=== PATIENT | female | born 1960 | race Caucasian/White ===

== ENCOUNTER 2018-02-27 18:18 | Observation (INO) | payer BC ==
[2018-02-27 19:07] LABS: #Basophils 0.1 thou/uL (0.0-0.2); #Eosinphils 0.3 thou/uL (0.0-0.7); #Lymphocytes 2.8 thou/uL (1.20-3.40); #Monocytes 0.5 thou/uL (0.11-0.59); #Neutrophils 4.7 thou/uL (1.40-6.50); %Basophils 1.1 % (0.0-1.0); %Eosinophils 3.2 % (0.0-10.0); %Lymphocytes 33.2 % (21.0-51.0); %Monocytes 5.9 % (0.0-10.0); %Neutrophils 56.6 % (42.0-75.0); Hemoglobin 13.5 g/dL (12.0-16.0); Mean Corpuscular HGB CONC 35.5 g/dL (32.0-36.0); Mean Corpuscular Volume 87.4 fL (78.0-98.0); Mean Platelet Volume 6.4 fL (7.4-10.4); Platelet Count 310 thou/uL (130-400); RBC Distribution Width 12.3 % (11.5-14.5); Red Blood Cell (RBC) Count 4.36 mill/uL (4.20-5.40); White Blood Cell (WBC) Count 8.4 thou/uL (4.8-10.8)
--- NOTE | 2018-02-27 19:17 | CT ---
CT BRAIN NONCONTRAST: 02/27/18 HISTORY: 58-year-old female with dysarthria. FINDINGS: There is no midline shift or any other mass effect. There is no evidence of acute intracranial hemor rhage, large cortical infarct, obstructive hydrocephalus, or extraaxial fluid collection. The calvar ium is intact. IMPRESSION: No acute intracranial findings. jn [] POS: [facility]
[2018-02-27 19:27] LABS: ALT (SGPT) 10 U/L (8-55); AST (SGOT) 11 U/L (5-34); Albumin 4.2 g/dL (3.5-5.0); Alkaline Phosphatase 76 U/L (40-150); Anion Gap 15 mmol/L (10-20); BUN (Urea Nitrogen) 14 mg/dL (9.8-20.1); Bilirubin, Total 0.4 mg/dL (0.2-1.2); CK (CPK) 28 U/L (29-168); Calc. Creatinine Clearance 0 mL/min (70-130); Calcium 9.6 mg/dL (7.8-10.44); Carbon Dioxide 22 mmol/L (22-29); Chloride 105 mmol/L (98-107); Estimated GFR-MDRD 71; Globulin 2.8 g/dL (2.4-3.5); Glucose 86 mg/dL (70-105); Potassium 3.8 mmol/L (3.5-5.1); Sodium 138 mmol/L (136-145)
[2018-02-27 19:31] LABS: CKMB 0.5 ng/mL (0-6.6); Troponin I Less than 0.010 ng/mL (< 0.028)
[2018-02-27 23:00] LABS: Troponin I Less than 0.010 ng/mL (< 0.028)
[2018-02-28 02:50] LABS: Troponin I Less than 0.010 ng/mL (< 0.028)
[2018-02-28] MEDS ORDERED: Ondansetron ODT 4 MG TAB SL PRN (03:02)
[2018-02-28] MEDS ORDERED: Acetaminophen 325 MG TAB PO PRN ×2 (03:02→07:30)
[2018-02-28] MEDS ORDERED: Ondansetron HCl/PF 4 MG/2 ML Vial IVP PRN (03:02)
[2018-02-28 03:32] VITALS: BMI 33.5
[2018-02-28] MEDS ORDERED: hydrALAZINE 20 MG/ML VIAL SLOW IVP PRN (07:30)
[2018-02-28] MEDS ORDERED: Bisacodyl 5 MG TAB PO PRN (07:30)
[2018-02-28] MEDS ORDERED: HYDROcodone/Acetaminophen 5/325 mg Tablet PO PRN (07:34)
[2018-02-28] MEDS ORDERED: clonazePAM 1 MG TAB PO PRN (07:34)
[2018-02-28] MEDS ORDERED: traZODone HCl 50 MG TAB PO PRN (07:34)
[2018-02-28] MEDS: Aspirin 325 mg Enteric Coated Tablet PO SCH (08:38)
[2018-02-28] MEDS: Lidocaine 5% Patch TD SCH (09:36)
[2018-02-28] MEDS: DULoxetine 60 MG CAP PO SCH (09:36)
[2018-02-28] MEDS: Bupropion 150 MG XL TAB PO SCH (09:36)
[2018-02-28] MEDS: Gabapentin 300 MG CAP PO SCH ×4 (09:36→20:25)
[2018-02-28] MEDS: Enoxaparin Sodium 40 MG/0.4 ML SYRINGE SC SCH (09:36)
--- NOTE | 2018-02-28 10:31 | ULT ---
CAROTID DUPLEX ULTRASOUND: DATE: 02/28/18 INDICATION: History of TIA. FINDINGS: No visible stenosis is evident on the Vizcaino scale or color Doppler images. Velocity measurements are w ithin normal limits. There is antegrade flow within the vertebral arteries. Peak systolic velocity in the right CCA was 94 cm/second and in the left CCA was 119 cm/second. Peak systolic velocity within the right ICA was 95 cm/second and within the left ICA was 98 cm/second . The right ICA/CCA ratio was 1.0 and the left was 0.8. IMPRESSION: No hemodynamically significant stenosis seen. POS: [facility]
--- NOTE | 2018-02-28 10:51 | MRI ---
MRI BRAIN WITHOUT CONTRAST: Date: 02/28/18 INDICATION: Concern for stroke. The patient has hesitancy of speech and difficulty swallowing with dry mouth and chest pain. COMPARISON: Noncontrast CT of the brain dated 02/27/18. FINDINGS: There is no evidence of any restricted diffusion to suggest acute ischemia. No signal abnormality is evident on the FLAIR and T2-weighted images to suggest acute abnormality. There is some mild chronic small vessel white matter ischemic change involving both cerebral hemispheres. There are appropriate flow-voids extending within the major intracranial arteries. Septum pellucidum and third ventricle ar e midline. Skull and extracranial soft tissues appear within normal limits. IMPRESSION: No acute intracranial abnormality. POS: [facility]
--- NOTE | 2018-02-28 11:25 | HP ---
DATE OF ADMISSION: 02/28/2018 PRIMARY CARE PROVIDER: Darian Huerta M.D. CHIEF COMPLAINT: Slurred speech. HISTORY OF PRESENT ILLNESS: Ms. Bartlett is a pleasant 58-year-old lady who was seen at [facility] on 02/28/2018. She reports that she has been having bilateral ankle swelling. She reports that this is a chronic is carlee, but her ankle swelling usually improves by the morning, whereas it has not been doing so over th e last week. She also reports feeling "little weird" over the last week. Yesterday, she was at work. She felt that she had a dry mouth and started licking her lips. She als o reports that as the day progressed, she started having slurred speech. Every task that she was doi ng was getting more difficult. She was also having difficulty concentrating. She reports having similar episodes in the past. She presented to the emergency room yesterday becau se she was worried about stroke. REVIEW OF SYSTEMS: All other systems reviewed and found to be negative. PAST MEDICAL HISTORY: Congestive heart failure, mitral valve regurgitation, osteoarthritis, fibromya lgia, viral pneumonia. PAST SURGICAL HISTORY: Left knee replacement, cholecystectomy, tonsillectomy. PSYCHIATRIC HISTORY: Anxiety and depression. SOCIAL HISTORY: The patient denies tobacco use, alcohol use or recreational drug use. FAMILY HISTORY: TIA in her mother, CVA in sister at age 57 and LA in brother at age 35. ALLERGIES: No known drug allergies. CURRENT MEDICATIONS: Wellbutrin XL 150 mg daily, clonazepam 1 mg 3 times a day as needed, Cymbalta 6 0 mg daily, gabapentin 300 mg 4 times a day, Langford 5/325 mg p.r.n., Lidoderm 5% patch 3 patches daily , trazodone 100 mg at bedtime as needed. PHYSICAL EXAMINATION: GENERAL: Ms. Bartlett is awake and alert, not in acute distress. VITAL SIGNS: She is afebrile. Blood pressure is 126/83, pulse 74, respiratory rate 16 and oxygen sa turation 96% on room air. She is obese, with a BMI 33.5. EYES: No scleral icterus. No conjunctival pallor. ENT: Moist mucosal membranes. No oropharyngeal erythema or exudates. NECK: Supple, nontender, trachea is midline. RESPIRATORY: Accessory muscles of breathing are not active. Chest wall movements are symmetric bila terally. LUNGS: Clear to auscultation without wheeze, rhonchi or crepitations. CARDIOVASCULAR: S1 and S2 are heard, regular. Peripheral pulses palpable. No carotid bruit, no per icardial rub. ABDOMEN: Soft, nontender, bowel sounds are heard, no hepatomegaly, no splenomegaly. NEUROLOGIC: Cranial nerves II-XII intact. No focal motor or sensory deficits. Deep tendon reflexes 2+, plantar reflexes downgoing bilaterally. MUSCULOSKELETAL: Power is 5/5 in all 4 extremities. SKIN: No rashes or subcutaneous nodules. LYMPHATIC: No cervical lymphadenopathy. PSYCHIATRIC: Normal mood, normal affect. The patient is oriented to person, place and time. LABORATORY DATA: Ms. Bartlett's labs and investigations were reviewed. I reviewed her electrocardiogra m, which shows normal sinus rhythm, no ST changes to suggest an acute coronary syndrome. I also revi ewed her noncontrast CT scan of brain, which does not show any acute intracranial abnormality. She h as an unremarkable CBC, unremarkable comprehensive metabolic profile, normal TSH, normal BNP and norm al troponin I x3. ASSESSMENT AND PLAN: Ms. Bartlett is a pleasant 58-year-old lady who was seen at [facility] on 02/28/2018. Her problem list includes: 1. Slurred speech: Ms. Bartlett is presenting with slurred speech, etiology is unclear at this time. There are no focal neurologic findings. We will admit the patient to the hospital on observation sta tus for further workup and management. We will check MRI of brain as well as 2D echocardiogram and c arotid Doppler. We will start her on aspirin and statin for possible transient ischemic attack. 2. Bilateral ankle swelling: At this time, she does not have any ankle swelling, she reports that i t has improved since yesterday. She has a normal BNP. We will await 2D echo report. Her albumin is normal as well. We will trial her on low dose furosemide for the next few days when she can be reas sessed by her primary care provider. 3. Fibromyalgia: Continue home medications, fibromyalgia appears to be stable. 4. Osteoarthritis: Appears to be stable. Many thanks for allowing me to participate in your patient's care. Please feel free to contact me wi th any questions or concerns. LEVEL OF RISK: High. LEVEL OF COMPLEXITY: High.
--- NOTE | 2018-02-28 15:35 | CON ---
CHIEF COMPLAINT: Transient ischemic attack. HISTORY OF PRESENT ILLNESS: The patient is a 58-year-old lady who reports her sister has had a stroke on the left side at age 57 and is bedridden. She reports she has been having swelling of her feet. She noted she was having some slurred speech and also delayed reaction while she was working. It took her a long time to even do a task such as taking a simple payment from someone yesterday when at work and she started to feel like there was some difficulty with her processing ability, which she normally has slightly slow processing mentally due to her fibromyalgia. She usually has some numbness and tingling in the left arm, but she did not have that yesterday. Her primary symptom yesterday was slurred speech and mental delay. PAST MEDICAL HISTORY: Congestive heart failure, mitral valve regurgitation, osteoarthritis, fibromyalgia and prior pneumonia. PAST SURGICAL HISTORY: She had multiple surgeries for her left knee and then had to have left knee replacement from a surgeon in [place] and this is called a customized left knee replacement, which is a more difficult process, but she is quite happy with the result. She had a cholecystectomy, tonsillectomy as a child. SOCIAL HISTORY: She lives with her , works oil and gas superintendent, does not smoke or drink alcohol. FAMILY HISTORY: She stated her sister had a severe CVA at age 57 and has become bedridden. Brother has had an ME. Mother used to have multiple ischemic events and the patient states mother used to sit and sometimes lick her lips and make pattern movements with the right upper extremity and says that her stomach felt better if she did that and she would have intermittent episodes like that and they finally learned it was due to multiple ischemic events. ALLERGIES: No known drug allergies. MEDICATIONS: She takes Wellbutrin, clonazepam, Cymbalta, gabapentin, [place], and Lidoderm patches and trazodone at home. She is not on aspirin on a daily basis. PHYSICAL EXAMINATION: VITAL SIGNS: Blood pressure 151/87, temperature 97.8, pulse is 77, respiratory rate 16, O2 sats 98. GENERAL APPEARANCE: Well-built, well-nourished lady. CHEST: Clear vesicular breathing. CARDIOVASCULAR: S1, S2 heard, no murmurs. ABDOMEN: Soft, nontender, no organomegaly noted. NEUROLOGIC: Higher intellectual functions: Normal orientation to time place and person, appropriate conversation. Cranial nerves II through XII normal with normal fundus examination. Normal visual arndt by confrontation method. Normal pupillary reaction bilaterally. Normal sensation of face bilaterally. Tongue midline, no atrophy noted. No facial asymmetry noted. Normal hearing to finger rub bilaterally. Normal elevation of palate. Motor examination: Bulk normal, tone normal, strength 5/5 throughout in iliopsoas, hamstrings, quadriceps, ankle dorsiflexion, plantar flexion, deltoid , biceps, triceps, wrist extension and flexion bilaterally. Deep tendon reflexes are 1+ throughout in upper and lower extremities. Sensory: Normal touch, pinprick, proprioception and vibration bilaterally in upper and lower extremities. Cerebellar: Normal [id number] and [id number]. Gait is not tested. LABORATORY DATA AND IMAGING: Her workup includes white count 8.4, hemoglobin 13.5, hematocrit 38.1, platelets 310. Sodium 138, potassium 3.8, bicarbonate 22 , chloride 105, BUN 14, creatinine 0.83. CPK 28, alkaline phosphatase 76, ALT 10, AST 11 and TSH 1.18. Her CT scan of the brain was negative for any acute intracranial findings. Her MRI of the brain was also normal with no acute intracranial abnormality and carotid Doppler study was also normal. ASSESSMENT AND PLAN: The patient is a 58-year-old lady with fibromyalgia and nonspecific symptom of delayed mental processing and slurred speech and came in for evaluation of stroke due to her family history. She has also been having some palpitations on and off. At this time, her neurological examination is normal. MRI does not show any lesions suggestive of vascular events. Transient ischemic attack cannot be completely ruled out due to her cardiac issues and also her family history. RECOMMENDATIONS: 1. Aspirin 81 mg per day for stroke prophylaxis. 2. From a neuro standpoint, she can be discharged home since her MRI is negative and she can follow up with her primary care doctor. 3. Please complete cardiac workup on her as planned. Please call me if you need any further assistance on her case. LENA
[2018-02-28] MEDS ORDERED: Lidocaine Patch Removal 1 EACH TOP SCH (21:00)
[2018-02-28] MEDS ORDERED: Atorvastatin Calcium 20 MG TAB PO SCH (21:00)
[2018-03-01 04:30] LABS: #Eosinphils 0.2 thou/uL (0.0-0.7); #Lymphocytes 2.9 thou/uL (1.20-3.40); #Monocytes 0.7 thou/uL (0.11-0.59); #Neutrophils 3.4 thou/uL (1.40-6.50); %Basophils 0.7 % (0.0-1.0); %Eosinophils 3.3 % (0.0-10.0); %Lymphocytes 39.6 % (21.0-51.0); %Monocytes 9.4 % (0.0-10.0); Hemoglobin 12.7 g/dL (12.0-16.0); Mean Corpuscular HGB CONC 34.6 g/dL (32.0-36.0); Mean Corpuscular Hemoglobin 30.9 pg (27.0-31.0); Mean Corpuscular Volume 89.5 fL (78.0-98.0); Mean Platelet Volume 6.9 fL (7.4-10.4); Platelet Count 254 thou/uL (130-400); RBC Distribution Width 12.4 % (11.5-14.5); Red Blood Cell (RBC) Count 4.09 mill/uL (4.20-5.40); White Blood Cell (WBC) Count 7.2 thou/uL (4.8-10.8)
[2018-03-01 04:42] LABS: Anion Gap 15 mmol/L (10-20); BUN (Urea Nitrogen) 16 mg/dL (9.8-20.1); Calc. Creatinine Clearance 118 mL/min (70-130); Calcium 9.2 mg/dL (7.8-10.44); Carbon Dioxide 24 mmol/L (22-29); Chloride 107 mmol/L (98-107); Cholesterol 169 mg/dl (< 200 Desired); Estimated GFR-MDRD 73; Glucose 96 mg/dL (70-105); HDL Cholesterol 56 mg/dL (>60 Neg Risk); LDL Cholesterol, Calculated 90 mg/dL; Potassium 4.5 mmol/L (3.5-5.1); Sodium 141 mmol/L (136-145); Triglycerides 117 mg/dL (Less than 150)
[2018-03-01 07:18] VITALS: BP 148/88; TEMP 97.5
[2018-03-01] MEDS: Aspirin 325 mg Enteric Coated Tablet PO SCH (08:36)
[2018-03-01] MEDS: Gabapentin 300 MG CAP PO SCH (08:36)
[2018-03-01] MEDS: Bupropion 150 MG XL TAB PO SCH (08:36)
[2018-03-01] MEDS: DULoxetine 60 MG CAP PO SCH (08:36)
[2018-03-01] MEDS: Enoxaparin Sodium 40 MG/0.4 ML SYRINGE SC SCH (08:36)
[2018-03-01] MEDS: Lidocaine 5% Patch TD SCH (08:37)
--- NOTE | 2018-03-01 09:34 | DIS ---
DATE OF ADMISSION: 02/28/2018 DATE OF DISCHARGE: 03/01/2018 PRIMARY CARE PHYSICIAN: Darian Huerta M.D. DISCHARGE DIAGNOSIS: Slurred speech. CONDITION OF PATIENT ON THE DAY OF DISCHARGE: Stable. I assessed Ms. Bartlett on the day of discharge. She denies any chest pain or shortness of breath. She denies any neurologic symptoms. Vital signs are stable. S1 and S2 are heard, regular. Lungs are clear to auscultation bilaterally. CONSULTATIONS DURING THIS HOSPITALIZATION: Neurology, Dr. Lees. DISCHARGE MEDICATIONS: She is being started on aspirin 81 mg daily for stroke prophylaxis. Otherwis e, no changes were made to her preadmission home medications as dictated on my history and physical n ote dated 02/28/2018. HOSPITAL COURSE: Ms. Bartlett is a pleasant 58-year-old lady who was admitted to [facility] on 02/28/2018 for slurred speech and delayed mental processing. Please refer to my histo ry and physical note dated 02/28/2018 for further details. MRI of the brain did not show any acute i ntracranial abnormality. Carotid Dopplers did not show any hemodynamically significant stenosis. [place] also had a 2D echocardiogram, which showed left ventricular ejection fraction of 55%-60%, grade I/I II diastolic dysfunction, mild mitral regurgitation, mildly dilated left atrium, mild tricuspid regur gitation and small pericardial effusion without tamponade. She had triglycerides 117, cholesterol 169, LDL cholesterol 90, and HDL cholesterol 56. TSH was norm al. Her neurologic symptoms resolved. She was seen by Neurology Service. Given her family history, she has been advised aspirin 81 mg daily for stroke prophylaxis. Many thanks for allowing me to participate in your patient's care. Please feel free to contact me wi th any questions or concerns. DISCHARGE DESTINATION: Home.
[2018-03-02] MEDS ORDERED: Aspirin 81 mg Enteric Coated Tablet PO SCH (09:00)
--- NOTE | 2018-03-07 21:20 | EKG ---
Test Reason : Blood Pressure : / mmHG Vent. Rate : 088 BPM Atrial Rate : 088 BPM P-R Int : 140 ms QRS Dur : 090 ms QT Int : 372 ms P-R-T Axes : 034 -11 030 degrees QTc Int : 450 ms Normal sinus rhythm Moderate voltage criteria for LVH, may be normal variant Borderline ECG Confirmed by COLLEEN BENZ DO ([id number]), city editor JESSE LOPSE ([id number] on 03/07/2018 9:19:54 PM Referred By: Confirmed By:COLLENE BENZ DO
== END 2018-03-01 10:42 | disposition home or self-care (01) ==
LOC: ERS 18:18 → 2SE 02-28 01:17
PROVIDERS: ADMIT Hospitalist; ATTEND Hospitalist
DX: R47.81 Slurred speech (principal); I50.9 Heart failure, unspecified; I34.0 Nonrheumatic mitral (valve) insufficiency; Z79.899 Other long term (current) drug therapy
CPT/HCPCS: 36415; 36416; 70450; 70551; 80048; 80053; 80061; 82553; 83880; 84443; 84484; 85025; 93005; 93306; 93880; 96372; G0378; G8978-GP-CH; G8979-GP-CH; G8980-GP-CH; G8987-GO-CH; G8988-GO-CH; G8989-GO-CH; G8996-GN-CI; G8997-GN-CI; J1650

== ENCOUNTER 2021-12-25 15:58 | Inpatient (IN) | payer BC ==
[2021-12-25 16:45] LABS: #Basophils 0.1 thou/uL (0.0-0.2); #Eosinphils 0.1 thou/uL (0.0-0.7); #Lymphocytes 2.7 thou/uL (1.20-3.40); #Monocytes 0.7 thou/uL (0.11-0.59); #Neutrophils 6.5 thou/uL (1.40-6.50); %Basophils 0.9 % (0.0-1.0); %Eosinophils 1.4 % (0.0-10.0); %Lymphocytes 26.8 % (21.0-51.0); %Monocytes 6.9 % (0.0-10.0); Hemoglobin 14.1 g/dL (12.0-16.0); Mean Corpuscular HGB CONC 32.6 g/dL (32.0-36.0); Mean Corpuscular Hemoglobin 31.7 pg (27.0-31.0); Mean Platelet Volume 7.6 fL (7.4-10.4); Platelet Count 251 thou/uL (130-400); RBC Distribution Width 12.6 % (11.5-14.5); Red Blood Cell (RBC) Count 4.46 mill/uL (4.20-5.40); White Blood Cell (WBC) Count 10.2 thou/uL (4.8-10.8)
[2021-12-25 16:56] LABS: INR-International Normal Ratio 0.9; PTT 26.4 sec (22.9-36.1); Prothrombin Time 12.6 sec (12.0-14.7)
[2021-12-25 17:07] LABS: ALT (SGPT) 10 U/L (8-55); AST (SGOT) 15 U/L (5-34); Albumin 3.8 g/dL (3.5-5.0); Alkaline Phosphatase 79 U/L (40-110); Anion Gap 15 mmol/L (10-20); BUN (Urea Nitrogen) 22 mg/dL (9.8-20.1); Bilirubin, Total 0.5 mg/dL (0.2-1.2); Calc. Creatinine Clearance 0 mL/min (70-130); Calcium 8.9 mg/dL (7.8-10.44); Carbon Dioxide 24 mmol/L (22-29); Chloride 106 mmol/L (98-107); Estimated GFR 77; Globulin 2.9 g/dL (2.4-3.5); Glucose 89 mg/dL (70-105); Potassium 4.2 mmol/L (3.5-5.1); Protein, Total 6.7 g/dL (6.0-8.3); Sodium 141 mmol/L (136-145)
[2021-12-25 17:40] LABS: CKMB 4.4 ng/mL (0-6.6)
[2021-12-25] MEDS ORDERED: Nitroglycerin 2% Ointment 1 INCH/1 GM Packet ONE (18:14)
[2021-12-25] MEDS ORDERED: Enoxaparin Sodium 100 MG/ML SYRINGE ONE (18:14)
[2021-12-25] MEDS ORDERED: Acetaminophen 500 MG TAB ONE (20:11)
[2021-12-25 20:36] LABS: Troponin I 2.297 ng/mL (< 0.028)
[2021-12-25] MEDS ORDERED: Ondansetron PF 4 MG/2 ML Vial IVP PRN (21:01)
[2021-12-25] MEDS ORDERED: Nitroglycerin 0.4 MG TAB (25 Tab Bottle) SL PRN (21:01)
[2021-12-25] MEDS ORDERED: Morphine 2 MG/ML VIAL SLOW IVP PRN (21:01)
[2021-12-25] MEDS ORDERED: Zolpidem Tartrate 5 MG TAB PO PRN (21:01)
[2021-12-25] MEDS ORDERED: Sodium Chloride 0.9% 1,000 ML IV SCH (21:15)
[2021-12-25] MEDS ORDERED: Morphine 2 MG/ML VIAL SLOW IVP SCH (21:15)
[2021-12-25] MEDS ORDERED: Aspirin Chewable 81 MG TAB PO SCH (21:15)
[2021-12-25] MEDS ORDERED: Furosemide 20 MG/2 ML VIAL SLOW IVP SCH (21:15)
[2021-12-25 21:30] VITALS: BMI 33.5
[2021-12-25] MEDS ORDERED: Clopidogrel Bisulfate 75 MG TAB PO SCH (21:30)
[2021-12-25] MEDS: Nitroglycerin 2% Ointment 1 INCH/1 GM Packet TOP SCH (22:16)
[2021-12-25] MEDS: clonazePAM 1 MG TAB PO PRN (22:17)
[2021-12-25 23:15] LABS: Critical Call Chem Troponin I 2NO.MO; Troponin I 2.432 ng/mL (< 0.028)
[2021-12-25] MEDS ORDERED: Lisinopril 20 MG TAB PO SCH (23:15)
[2021-12-26] MEDS: HYDROcodone/Acetaminophen 7.5/325 mg Tablet PO PRN ×5 (03:37→22:36)
[2021-12-26] MEDS: hydrALAZINE 20 MG/ML VIAL SLOW IVP PRN (04:01)
[2021-12-26 05:16] LABS: #Basophils 0.1 thou/uL (0.0-0.2); #Eosinphils 0.2 thou/uL (0.0-0.7); #Lymphocytes 3.7 thou/uL (1.20-3.40); #Neutrophils 5.8 thou/uL (1.40-6.50); %Basophils 0.8 % (0.0-1.0); %Eosinophils 2.1 % (0.0-10.0); %Lymphocytes 34.7 % (21.0-51.0); %Monocytes 8.9 % (0.0-10.0); %Neutrophils 53.6 % (42.0-75.0); Hemoglobin 13.7 g/dL (12.0-16.0); Mean Corpuscular HGB CONC 32.8 g/dL (32.0-36.0); Mean Corpuscular Hemoglobin 31.4 pg (27.0-31.0); Mean Corpuscular Volume 95.7 fL (78.0-98.0); Mean Platelet Volume 8.4 fL (7.4-10.4); Platelet Count 267 thou/uL (130-400); RBC Distribution Width 12.5 % (11.5-14.5); Red Blood Cell (RBC) Count 4.36 mill/uL (4.20-5.40); White Blood Cell (WBC) Count 10.7 thou/uL (4.8-10.8)
[2021-12-26] MEDS: Nitroglycerin 2% Ointment 1 INCH/1 GM Packet TOP SCH ×3 (05:44→21:49)
[2021-12-26 06:05] LABS: LDL Cholesterol, Calculated 91 mg/dL
[2021-12-26 06:14] LABS: ALT (SGPT) 11 U/L (8-55); AST (SGOT) 20 U/L (5-34); Alkaline Phosphatase 82 U/L (40-110); Anion Gap 18 mmol/L (10-20); BUN (Urea Nitrogen) 21 mg/dL (9.8-20.1); Bilirubin, Total 0.7 mg/dL (0.2-1.2); Calc. Creatinine Clearance 117 mL/min (70-130); Calcium 9.5 mg/dL (7.8-10.44); Carbon Dioxide 22 mmol/L (22-29); Cardiac Risk 4.4 (Less than 4.5); Chloride 106 mmol/L (98-107); Cholesterol 199 mg/dl (< 200 Desired); Estimated GFR 96; Globulin 3.3 g/dL (2.4-3.5); Glucose 89 mg/dL (70-105); HDL Cholesterol 45 mg/dL (>60 Neg Risk); Potassium 3.9 mmol/L (3.5-5.1); Protein, Total 7.3 g/dL (6.0-8.3); Sodium 142 mmol/L (136-145)
[2021-12-26] MEDS ORDERED: Labetalol HCl 100 MG/20 ML VIAL SLOW IVP SCH (06:15)
[2021-12-26 06:21] LABS: Triglycerides 298 mg/dL (Less than 150)
[2021-12-26] MEDS: DULoxetine 30 MG CAP PO SCH (08:31)
[2021-12-26] MEDS: Famotidine 20 MG TAB PO SCH ×2 (08:31→21:49)
[2021-12-26] MEDS: Losartan 25 MG TAB PO SCH (08:32)
[2021-12-26] MEDS: Metoprolol Tartrate 25 MG TAB PO SCH ×2 (08:32→21:49)
[2021-12-26] MEDS ORDERED: Metoprolol Tartrate 25 MG TAB PO SCH (09:00)
[2021-12-26] MEDS ORDERED: Lisinopril 20 MG TAB PO SCH (09:00)
[2021-12-26] MEDS ORDERED: Clopidogrel Bisulfate 75 MG TAB PO SCH (09:00)
[2021-12-26] MEDS ORDERED: Iopamidol 370 76% 100 ML VIAL ONE (11:26)
[2021-12-26] MEDS ORDERED: Communication Order-Pharmacy FS SCH (12:30)
[2021-12-26] MEDS ORDERED: Lidocaine 1% PF 5 ML VIAL ONE (12:31)
[2021-12-26] MEDS ORDERED: Verapamil 5 MG/2 ML VIAL ONE (12:31)
[2021-12-26] MEDS ORDERED: Heparin 10,000 UNITS/ 10 ML VIAL ONE (12:31)
[2021-12-26] MEDS ORDERED: Nitroglycerin 100MG/250ML BOT 250 ML ONE (12:31)
[2021-12-26] MEDS ORDERED: Lidocaine 1% (PF) 30 ML VIAL ONE (12:31)
[2021-12-26] MEDS ORDERED: Midazolam HCl 2 mg/2 ml Vial ONE (13:11)
[2021-12-26] MEDS ORDERED: hydrALAZINE 20 MG/ML VIAL ONE (13:34)
[2021-12-26] MEDS ORDERED: Labetalol HCl 100 MG/20 ML VIAL ONE (13:46)
[2021-12-26] MEDS ORDERED: Acetaminophen/Codeine 30-300mg Tablet PO PRN ×2 (19:26)
[2021-12-26] MEDS ORDERED: Nitroglycerin 0.4 MG TAB (25 Tab Bottle) SL PRN (19:26)
[2021-12-26] MEDS ORDERED: Sodium Chloride 0.9% 200 ML IV PRN (19:26)
[2021-12-26] MEDS ORDERED: Atorvastatin Calcium 40 MG TAB PO SCH (21:00)
[2021-12-26] MEDS: clonazePAM 1 MG TAB PO PRN (21:52)
[2021-12-27] MEDS: Nitroglycerin 2% Ointment 1 INCH/1 GM Packet TOP SCH ×2 (05:56→14:37)
[2021-12-27] MEDS: Famotidine 20 MG TAB PO SCH (11:03)
[2021-12-27] MEDS: Metoprolol Tartrate 25 MG TAB PO SCH (11:03)
[2021-12-27] MEDS: Losartan 25 MG TAB PO SCH (11:04)
[2021-12-27] MEDS: DULoxetine 30 MG CAP PO SCH (11:04)
[2021-12-27] MEDS: HYDROcodone/Acetaminophen 7.5/325 mg Tablet PO PRN (11:04)
[2021-12-27] MEDS ORDERED: Iopamidol 370 76% 100 ML VIAL ONE (11:10)
[2021-12-27 12:39] VITALS: TEMP 98.7
[2021-12-27] MEDS: hydrALAZINE 20 MG/ML VIAL SLOW IVP PRN (12:59)
[2021-12-27 14:31] VITALS: BP 129/60
== END 2021-12-27 15:41 | disposition home or self-care (01) | DRG 287 ==
LOC: ERS 15:58 → INTOOBSV 17:20 → 2NO 17:20 → OBSVTOIN 12-26 11:37
PROVIDERS: ADMIT Family Medicine; ATTEND Internal Medicine
PROC: 4A023N7 Measurement of Cardiac Sampling and Pressure, Left Heart, Percutaneous Approach (ICD-10-PCS; principal; 2021-12-26)
PROC: B2111ZZ Fluoroscopy of Multiple Coronary Arteries using Low Osmolar Contrast (ICD-10-PCS; 2021-12-26)
PROC: B2151ZZ Fluoroscopy of Left Heart using Low Osmolar Contrast (ICD-10-PCS; 2021-12-26)
DX: R07.89 Other chest pain (principal); I50.32 Chronic diastolic (congestive) heart failure; E78.5 Hyperlipidemia, unspecified; Z20.822 Contact with and (suspected) exposure to COVID-19; I11.0 Hypertensive heart disease with heart failure; M19.90 Unspecified osteoarthritis, unspecified site; Z96.651 Presence of right artificial knee joint; F41.9 Anxiety disorder, unspecified; R77.8 Other specified abnormalities of plasma proteins; I25.10 Atherosclerotic heart disease of native coronary artery without angina pectoris; Z79.82 Long term (current) use of aspirin; Z79.899 Other long term (current) drug therapy; Z90.49 Acquired absence of other specified parts of digestive tract; Z90.09 Acquired absence of other part of head and neck; Z88.8 Allergy status to other drugs, medicaments and biological substances
CPT/HCPCS: 36415; 71275; 80053; 80061; 82553; 83880; 85025; 85379; 85610; 85730; 93005; 93306; 93458; 93798; 94760; 96372; 96374; 96375; 99152; 99153; G0378; J0360; J1644; J1650; J1940; J2001; J2250; J2270; Q9967

== ENCOUNTER 2022-01-27 18:04 | Inpatient (IN) | payer BC ==
[2022-01-27 21:01] VITALS: BMI 32.9
[2022-01-27] MEDS ORDERED: Bisacodyl 10 MG SUPP PR PRN (21:45)
[2022-01-27] MEDS ORDERED: Guaifenesin DM 100-10/5 ML UDCUP PO PRN (21:45)
[2022-01-27] MEDS ORDERED: Ondansetron ODT 4 MG TAB PO PRN (21:45)
[2022-01-27] MEDS ORDERED: Acetaminophen 325 MG TAB PO PRN (21:45)
[2022-01-27] MEDS ORDERED: Acetaminophen 650 MG Suppository PR PRN (21:45)
[2022-01-27] MEDS ORDERED: Benzonatate 100 MG CAP PO PRN (21:45)
[2022-01-27] MEDS ORDERED: Albuterol 200 PUFF (6.7GM INHALER) INH PRN (21:45)
[2022-01-27] MEDS ORDERED: Bisacodyl 5 MG TAB PO PRN (21:45)
[2022-01-27] MEDS ORDERED: Senokot S 8.6-50 MG TAB PO PRN (21:45)
[2022-01-27 23:41] LABS: SARS-CoV-2 NAA Rapid Test DETECTED (NotDetected)
[2022-01-27] MEDS ORDERED: Gabapentin 300 MG CAP PO PRN (23:45)
[2022-01-27] MEDS ORDERED: Lidocaine 5% Patch TD PRN (23:45)
[2022-01-28] MEDS: clonazePAM 1 MG TAB PO PRN ×2 (00:38→20:35)
[2022-01-28] MEDS: HYDROcodone/Acetaminophen 5/325 mg Tablet PO PRN ×2 (00:39→20:36)
[2022-01-28] MEDS ORDERED: hydrALAZINE 20 MG/ML VIAL SLOW IVP PRN (01:36)
[2022-01-28 04:45] LABS: #Lymphocytes 2.2 thou/uL (1.20-3.40); #Monocytes 1.4 thou/uL (0.11-0.59); %Basophils 0.2 % (0.0-1.0); %Eosinophils 0.2 % (0.0-10.0); %Neutrophils 73.7 % (42.0-75.0); Hemoglobin 12.7 g/dL (12.0-16.0); Mean Corpuscular HGB CONC 33.5 g/dL (32.0-36.0); Mean Corpuscular Hemoglobin 31.7 pg (27.0-31.0); Mean Corpuscular Volume 94.8 fL (78.0-98.0); Mean Platelet Volume 7.2 fL (7.4-10.4); Platelet Count 357 thou/uL (130-400); RBC Distribution Width 12.4 % (11.5-14.5); White Blood Cell (WBC) Count 13.6 thou/uL (4.8-10.8)
[2022-01-28 04:55] LABS: INR-International Normal Ratio 1.1; PTT 25.9 sec (22.9-36.1); Prothrombin Time 14.5 sec (12.0-14.7)
[2022-01-28 05:06] LABS: Anion Gap 17 mmol/L (10-20); BUN (Urea Nitrogen) 34 mg/dL (9.8-20.1); CRP (Inflammatory) Less than 0.50 mg/dL (= or < 0.5); Calc. Creatinine Clearance 96 mL/min (70-130); Calcium 8.9 mg/dL (7.8-10.44); Carbon Dioxide 20 mmol/L (23-31); Chloride 107 mmol/L (98-107); Estimated GFR 73; Glucose 101 mg/dL (80-115); Potassium 4.1 mmol/L (3.5-5.1); Sodium 140 mmol/L (136-145)
[2022-01-28] MEDS: Famotidine/PF 20 mg/2ml Vial SLOW IVP SCH ×2 (08:12→20:37)
[2022-01-28] MEDS: Ascorbic Acid 500 mg Chewable Tablet PO SCH (08:35)
[2022-01-28] MEDS: Dexamethasone 4 MG TAB PO SCH (08:36)
[2022-01-28] MEDS: DULoxetine 60 MG CAP PO SCH (08:37)
[2022-01-28] MEDS: Zinc Sulfate 220 MG CAP PO SCH (08:37)
[2022-01-28] MEDS: Famotidine 20 MG TAB PO SCH ×2 (08:37→20:35)
[2022-01-28] MEDS: Metoprolol Tartrate 25 MG TAB PO SCH ×2 (08:37→20:35)
[2022-01-28] MEDS: Losartan 25 MG TAB PO SCH (08:37)
[2022-01-28] MEDS: Enoxaparin Sodium 40 MG/0.4 ML SYRINGE SC SCH (08:37)
[2022-01-28] MEDS: Aspirin 81 mg Enteric Coated Tablet PO SCH (08:37)
[2022-01-28] MEDS: Azithromycin 500 MG in Sodium Chloride 0.9% 250 ML 250 ML IVPB SCH (08:38)
[2022-01-28] MEDS: Transdermal Patch Removal TOP SCH ×2 (08:39→20:37)
[2022-01-28] MEDS: Cholecalciferol (Vitamin D3) 400 UNITS TAB PO SCH (09:47)
[2022-01-28] MEDS: cefTRIAXone\\ROCEPHIN 1 GM in Sodium Chloride 0.9% 100 ML IVPB SCH (09:47)
[2022-01-28] MEDS ORDERED: Sodium Bicarbonate 2.5 MEQ/5 ML VIAL ONE (13:59)
[2022-01-28] MEDS ORDERED: Lidocaine 1% PF 5 ML VIAL ONE (13:59)
[2022-01-28] MEDS ORDERED: Furosemide 20 MG/2 ML VIAL SLOW IVP SCH (15:00)
[2022-01-28 15:45] LABS: Pleural Fluid, Amylase Less than 30 U/L (Not Available); Pleural Fluid, Glucose 111 mg/dL; Pleural Fluid, LDH 77 U/L (Not Available); Pleural Fluid, Protein 1.8 g/dL
[2022-01-28 16:00] LABS: RBC Count-Automated (BF) 151 /cu.mm; WBC/Nucleated-Auto (BF) 227 /cu.mm
[2022-01-28 16:05] LABS: Fluid, pH - Pleural Fld Greater than 7.50 (7.60 - 7.66)
[2022-01-28 16:20] LABS: BF Color Yellow; Body Fluid Source Thoracentesis Fluid; Clarity Clear (Clear); Tube # EDTA
[2022-01-28 16:23] LABS: BF Segmented Neutrophils 23 %; Cell Count Non Hematic 11 %; Lymphocytes 66 %
[2022-01-29 05:15] LABS: Hemoglobin 13.4 g/dL (12.0-16.0); Mean Corpuscular HGB CONC 33.6 g/dL (32.0-36.0); Mean Corpuscular Hemoglobin 31.9 pg (27.0-31.0); Mean Platelet Volume 7.3 fL (7.4-10.4); Platelet Count 409 thou/uL (130-400); RBC Distribution Width 12.7 % (11.5-14.5); Red Blood Cell (RBC) Count 4.19 mill/uL (4.20-5.40); White Blood Cell (WBC) Count 14.5 thou/uL (4.8-10.8)
[2022-01-29 05:29] LABS: Albumin 3.9 g/dL (3.4-4.8); Anion Gap 15 mmol/L (10-20); BUN (Urea Nitrogen) 30 mg/dL (9.8-20.1); Calc. Creatinine Clearance 118 mL/min (70-130); Calcium 8.6 mg/dL (7.8-10.44); Carbon Dioxide 21 mmol/L (23-31); Chloride 111 mmol/L (98-107); Estimated GFR 94; Glucose 106 mg/dL (80-115); Potassium 3.6 mmol/L (3.5-5.1); Sodium 143 mmol/L (136-145)
[2022-01-29] MEDS: Famotidine/PF 20 mg/2ml Vial SLOW IVP SCH ×2 (08:38→20:14)
[2022-01-29] MEDS: Aspirin 81 mg Enteric Coated Tablet PO SCH (08:38)
[2022-01-29] MEDS: DULoxetine 60 MG CAP PO SCH (08:38)
[2022-01-29] MEDS: Dexamethasone 4 MG TAB PO SCH (08:38)
[2022-01-29] MEDS: Losartan 25 MG TAB PO SCH (08:38)
[2022-01-29] MEDS: Azithromycin 500 MG in Sodium Chloride 0.9% 250 ML 250 ML IVPB SCH (08:39)
[2022-01-29] MEDS: Ondansetron PF 4 MG/2 ML Vial IVP PRN ×2 (08:39→17:28)
[2022-01-29] MEDS: Famotidine 20 MG TAB PO SCH ×2 (08:40→20:13)
[2022-01-29] MEDS: Enoxaparin Sodium 40 MG/0.4 ML SYRINGE SC SCH (08:40)
[2022-01-29] MEDS ORDERED: Furosemide 20 MG/2 ML VIAL SLOW IVP SCH (09:00)
[2022-01-29] MEDS: Ascorbic Acid 500 mg Chewable Tablet PO SCH (11:28)
[2022-01-29] MEDS: Metoprolol Tartrate 25 MG TAB PO SCH ×2 (11:28→20:13)
[2022-01-29] MEDS: cefTRIAXone\\ROCEPHIN 1 GM in Sodium Chloride 0.9% 100 ML IVPB SCH (11:28)
[2022-01-29] MEDS: Zinc Sulfate 220 MG CAP PO SCH (11:28)
[2022-01-29] MEDS: Cholecalciferol (Vitamin D3) 400 UNITS TAB PO SCH (11:28)
[2022-01-29] MEDS: Transdermal Patch Removal TOP SCH ×2 (11:31→20:14)
[2022-01-29] MEDS: clonazePAM 1 MG TAB PO PRN (20:12)
[2022-01-29] MEDS: HYDROcodone/Acetaminophen 5/325 mg Tablet PO PRN (20:13)
[2022-01-30 07:16] LABS: Hemoglobin 12.6 g/dL (12.0-16.0); Mean Corpuscular HGB CONC 33.3 g/dL (32.0-36.0); Mean Corpuscular Hemoglobin 31.5 pg (27.0-31.0); Mean Corpuscular Volume 94.7 fL (78.0-98.0); Platelet Count 366 thou/uL (130-400); RBC Distribution Width 12.7 % (11.5-14.5); White Blood Cell (WBC) Count 12.9 thou/uL (4.8-10.8)
[2022-01-30 07:30] LABS: Anion Gap 11 mmol/L (10-20); BUN (Urea Nitrogen) 26 mg/dL (9.8-20.1); Calc. Creatinine Clearance 118 mL/min (70-130); Calcium 8.6 mg/dL (7.8-10.44); Carbon Dioxide 26 mmol/L (23-31); Chloride 107 mmol/L (98-107); Estimated GFR 98; Glucose 87 mg/dL (80-115); Potassium 3.8 mmol/L (3.5-5.1); Sodium 140 mmol/L (136-145)
[2022-01-30] MEDS ORDERED: HYDROcodone/Acetaminophen 5/325 mg Tablet PO SCH (07:30)
[2022-01-30] MEDS ORDERED: Furosemide 20 MG TAB PO SCH (09:00)
[2022-01-30] MEDS: Famotidine/PF 20 mg/2ml Vial SLOW IVP SCH (09:45)
[2022-01-30] MEDS: Dexamethasone 4 MG TAB PO SCH (10:00)
[2022-01-30] MEDS: Cholecalciferol (Vitamin D3) 400 UNITS TAB PO SCH (10:00)
[2022-01-30] MEDS: Aspirin 81 mg Enteric Coated Tablet PO SCH (10:00)
[2022-01-30] MEDS: Azithromycin 500 MG in Sodium Chloride 0.9% 250 ML 250 ML IVPB SCH (10:00)
[2022-01-30] MEDS: Ascorbic Acid 500 mg Chewable Tablet PO SCH (10:00)
[2022-01-30] MEDS: DULoxetine 60 MG CAP PO SCH (10:01)
[2022-01-30] MEDS: Enoxaparin Sodium 40 MG/0.4 ML SYRINGE SC SCH (10:01)
[2022-01-30] MEDS: Zinc Sulfate 220 MG CAP PO SCH (10:01)
[2022-01-30] MEDS: Famotidine 20 MG TAB PO SCH (10:01)
[2022-01-30] MEDS: Transdermal Patch Removal TOP SCH (10:01)
[2022-01-30] MEDS: Metoprolol Tartrate 25 MG TAB PO SCH (10:01)
[2022-01-30] MEDS: Losartan 25 MG TAB PO SCH (10:01)
[2022-01-30 11:38] VITALS: BP 158/70; TEMP 97.8
[2022-01-30] MEDS: cefTRIAXone\\ROCEPHIN 1 GM in Sodium Chloride 0.9% 100 ML IVPB SCH (13:26)
[2022-01-31 13:29] LABS: ANA Symphony (Qualitative) Negative (Negative); ANA Symphony (Quantitative) 0.1 Ratio (< 0.7 Negative); CCP IgG Antibody 0.5 EliAU/mL (<7 Negative); Rheumatoid Factor IgA Antibody 2.1 IU/mL (<14 Negative); Rheumatoid Factor IgM Antibody Less than 0.5 IU/mL (<3.5 Negative); dsDNA IgG Antibody Less than 0.5 IU/mL (<10 Negative)
== END 2022-01-30 17:23 | disposition home or self-care (01) | DRG 177 ==
LOC: 2NO 20:29
PROVIDERS: ADMIT Internal Medicine; ATTEND Internal Medicine
PROC: 8E0ZXY6 Isolation (ICD-10-PCS; 2022-01-27)
PROC: 0W993ZX Drainage of Right Pleural Cavity, Percutaneous Approach, Diagnostic (ICD-10-PCS; principal; 2022-01-28)
DX: U07.1 COVID-19 (principal); J12.82 Pneumonia due to coronavirus disease 2019; I50.33 Acute on chronic diastolic (congestive) heart failure; J96.01 Acute respiratory failure with hypoxia; E87.2 Acidosis; J90 Pleural effusion, not elsewhere classified; I11.0 Hypertensive heart disease with heart failure; M19.90 Unspecified osteoarthritis, unspecified site; M79.7 Fibromyalgia; Z96.653 Presence of artificial knee joint, bilateral; Z88.8 Allergy status to other drugs, medicaments and biological substances; Z79.899 Other long term (current) drug therapy; Z79.82 Long term (current) use of aspirin; Z90.89 Acquired absence of other organs
CPT/HCPCS: 32555; 36415; 36416; 71045; 80048; 82040; 82150; 82728; 82945; 83520; 83615; 84145; 84157; 84478; 85025; 85027; 85060; 85610; 85730; 86038; 86140; 86200; 86225; 87070; 87116; 87205; 87206; 88112; 88305; 88341; 88342; 89051; J0360; J0456; J0696; J1650; J1940; J2405; J3490; J7050; J8540; Q0162; S0028; U0002

== ENCOUNTER 2022-06-16 10:31 | Inpatient (IN) | payer BC ==
[2022-06-16 11:21] LABS: #Basophils 0.1 thou/uL (0.0-0.2); #Eosinphils 0.3 thou/uL (0.0-0.7); #Lymphocytes 3.7 thou/uL (1.20-3.40); #Monocytes 0.9 thou/uL (0.11-0.59); %Basophils 0.9 % (0.0-1.0); %Eosinophils 3.6 % (0.0-10.0); %Lymphocytes 41.3 % (21.0-51.0); %Monocytes 9.8 % (0.0-10.0); %Neutrophils 44.3 % (42.0-75.0); Hemoglobin 13.9 g/dL (12.0-16.0); Mean Corpuscular HGB CONC 33.8 g/dL (32.0-36.0); Mean Corpuscular Volume 97.5 fl (78.0-98.0); Platelet Count 315 10x3/uL (130-400); RBC Distribution Width 13.5 % (11.5-14.5); Red Blood Cell (RBC) Count 4.22 mill/uL (4.20-5.40)
[2022-06-16 11:40] LABS: ALT (SGPT) 7 U/L (8-55); AST (SGOT) 11 U/L (5-34); Albumin 4.1 g/dL (3.4-4.8); Alkaline Phosphatase 53 U/L (40-110); Anion Gap 14 mmol/L (10-20); BUN (Urea Nitrogen) 11 mg/dL (9.8-20.1); Bilirubin, Total 0.6 mg/dL (0.2-1.2); CK (CPK) 17 U/L (29-168); Calc. Creatinine Clearance 0 mL/min (70-130); Calcium 9.9 mg/dL (7.8-10.44); Carbon Dioxide 20 mmol/L (23-31); Chloride 111 mmol/L (98-107); Estimated GFR 95; Globulin 2.7 g/dL (2.4-3.5); Glucose 84 mg/dL (80-115); Lipase 13 U/L (8-78); Potassium 4.1 mmol/L (3.5-5.1); Protein, Total 6.8 g/dL (5.8-8.1); Sodium 141 mmol/L (136-145)
[2022-06-16 11:49] LABS: SARS-CoV-2 NAA Rapid Test Not Detected (NotDetected)
[2022-06-16] MEDS ORDERED: Furosemide 40 MG/4 ML VIAL ONE (12:23)
[2022-06-16] MEDS ORDERED: Nitroglycerin 2% Ointment 1 INCH/1 GM Packet ONE (12:23)
[2022-06-16] MEDS ORDERED: Nitroglycerin 50 MG/250 ML BOT 250 ML ONE (12:30)
[2022-06-16 13:45] LABS: Bilirubin Negative (Negative); Blood, Urine Negative (Negative); Clarity Clear (Clear); Glucose, Urine (Dipstick) Normal (Negative); Ketone, Urine Negative (Negative); Leukocyte Negative Leu/uL (Negative); Nitrite Negative (Negative); Protein, Urine (Dipstick) Negative (Neg-Trace); Specific Gravity, Urine 1.014 (1.002-1.036); Urobilinogen Normal mg/dL (Less than 2)
[2022-06-16] MEDS ORDERED: Cefepime 2 GM VIAL ONE (13:54)
[2022-06-16] MEDS ORDERED: Acetaminophen 325 MG TAB PO PRN (13:58)
[2022-06-16] MEDS ORDERED: HYDROcodone/Acetaminophen 5/325 mg Tablet PO PRN (13:58)
[2022-06-16] MEDS ORDERED: Ondansetron PF 4 MG/2 ML Vial IVP PRN (13:58)
[2022-06-16] MEDS ORDERED: Guaifenesin DM 100-10/5 ML UDCUP PO PRN (13:58)
[2022-06-16] MEDS ORDERED: Senokot S 8.6-50 MG TAB PO PRN (13:58)
[2022-06-16 14:27] LABS: Lactic Acid 3.8 mmol/L (0.5-2.2)
[2022-06-16] MEDS ORDERED: Vancomycin 1 GM/200 ML (FROZEN) BAG ONE (14:34)
[2022-06-16] MEDS ORDERED: Iopamidol-370 76% 500 ML 1 ML ONE (15:12)
[2022-06-16] MEDS ORDERED: tiZANidine HCl 4 MG TAB PO PRN (18:34)
[2022-06-16 19:09] VITALS: BMI 31.1
[2022-06-16 19:11] LABS: Legionella Urinary Ag Negative (Negative); Strep pneumo Urine Ag NEGATIVE (NEGATIVE)
[2022-06-16 20:21] LABS: Lactic Acid 0.8 mmol/L (0.5-2.2)
[2022-06-16] MEDS: Famotidine 20 MG TAB PO SCH (20:23)
[2022-06-16] MEDS: Metoprolol Tartrate 25 MG TAB PO SCH (20:23)
[2022-06-16] MEDS: cefTRIAXone\\ROCEPHIN 2 GM in Sodium Chloride 0.9% 100 ML IVPB SCH (20:23)
[2022-06-17 04:11] LABS: #Basophils 0.1 thou/uL (0.0-0.2); #Eosinphils 0.2 thou/uL (0.0-0.7); #Lymphocytes 2.4 thou/uL (1.20-3.40); #Monocytes 0.8 thou/uL (0.11-0.59); #Neutrophils 7.3 thou/uL (1.40-6.50); %Basophils 0.7 % (0.0-1.0); %Eosinophils 1.5 % (0.0-10.0); %Lymphocytes 22.4 % (21.0-51.0); %Monocytes 7.7 % (0.0-10.0); %Neutrophils 67.7 % (42.0-75.0); Mean Corpuscular HGB CONC 33.6 g/dL (32.0-36.0); Mean Corpuscular Volume 95.5 fl (78.0-98.0); Mean Platelet Volume 8.1 fL (7.4-10.4); Platelet Count 284 10x3/uL (130-400); RBC Distribution Width 13.4 % (11.5-14.5); Red Blood Cell (RBC) Count 4.37 mill/uL (4.20-5.40); White Blood Cell (WBC) Count 10.8 10x3/uL (4.8-10.8)
[2022-06-17 04:53] LABS: Anion Gap 18 mmol/L (10-20); BUN (Urea Nitrogen) 9 mg/dL (9.8-20.1); Calc. Creatinine Clearance 130 mL/min (70-130); Calcium 9.5 mg/dL (7.8-10.44); Carbon Dioxide 18 mmol/L (23-31); Chloride 109 mmol/L (98-107); Estimated GFR 101; Glucose 90 mg/dL (80-115); Magnesium 1.9 mg/dL (1.6-2.6); Potassium 3.5 mmol/L (3.5-5.1); Sodium 141 mmol/L (136-145)
[2022-06-17] MEDS: Furosemide 40 MG/4 ML VIAL SLOW IVP SCH ×2 (05:08→14:03)
[2022-06-17] MEDS ORDERED: Potassium Chloride 20 MEQ TAB PO SCH (08:00)
[2022-06-17] MEDS: Metoprolol Tartrate 25 MG TAB PO SCH ×2 (08:23→20:00)
[2022-06-17] MEDS: Enoxaparin Sodium 40 MG/0.4 ML SYRINGE SC SCH (08:23)
[2022-06-17] MEDS: Azithromycin 250 MG TAB PO SCH (08:23)
[2022-06-17] MEDS: DULoxetine 60 MG CAP PO SCH (08:23)
[2022-06-17] MEDS: Famotidine 20 MG TAB PO SCH ×2 (08:23→20:00)
[2022-06-17] MEDS: Aspirin 81 mg Enteric Coated Tablet PO SCH (08:23)
[2022-06-17] MEDS ORDERED: Electrolyte Replacement Protocol 1 EACH FS SCH (09:00)
[2022-06-17] MEDS ORDERED: Magnesium 2 GM/50 ML(in water) 2 GM in Premix Bag 1 BAG IVPB SCH (09:15)
[2022-06-17] MEDS ORDERED: Electrolyte Replacement Protocol FS PRN (09:15)
[2022-06-17] MEDS: clonazePAM 1 MG TAB PO PRN (09:24)
[2022-06-17 13:49] LABS: Potassium 4.2 mmol/L (3.5-5.1)
[2022-06-17] MEDS: cefTRIAXone\\ROCEPHIN 2 GM in Sodium Chloride 0.9% 100 ML IVPB SCH (17:02)
[2022-06-18 04:37] LABS: #Basophils 0.1 thou/uL (0.0-0.2); #Eosinphils 0.3 thou/uL (0.0-0.7); #Monocytes 0.9 thou/uL (0.11-0.59); #Neutrophils 4.1 thou/uL (1.40-6.50); %Basophils 1.1 % (0.0-1.0); %Eosinophils 3.9 % (0.0-10.0); %Lymphocytes 35.5 % (21.0-51.0); %Monocytes 10.4 % (0.0-10.0); %Neutrophils 49.1 % (42.0-75.0); Hemoglobin 15.2 g/dL (12.0-16.0); Mean Corpuscular HGB CONC 32.7 g/dL (32.0-36.0); Mean Corpuscular Hemoglobin 31.8 pg (27.0-31.0); Mean Corpuscular Volume 97.3 fl (78.0-98.0); Mean Platelet Volume 7.9 fL (7.4-10.4); Platelet Count 302 10x3/uL (130-400); RBC Distribution Width 13.5 % (11.5-14.5); Red Blood Cell (RBC) Count 4.77 mill/uL (4.20-5.40); White Blood Cell (WBC) Count 8.4 10x3/uL (4.8-10.8)
[2022-06-18 04:49] LABS: Anion Gap 19 mmol/L (10-20); BUN (Urea Nitrogen) 13 mg/dL (9.8-20.1); Calc. Creatinine Clearance 121 mL/min (70-130); Calcium 10.1 mg/dL (7.8-10.44); Carbon Dioxide 19 mmol/L (23-31); Chloride 105 mmol/L (98-107); Estimated GFR 100; Glucose 88 mg/dL (80-115); Potassium 3.6 mmol/L (3.5-5.1); Sodium 139 mmol/L (136-145)
[2022-06-18] MEDS ORDERED: Magnesium 2 GM/50 ML(in water) 2 GM in Premix Bag 1 BAG IVPB SCH (08:00)
[2022-06-18] MEDS: Aspirin 81 mg Enteric Coated Tablet PO SCH (08:55)
[2022-06-18] MEDS: Famotidine 20 MG TAB PO SCH ×2 (08:56→20:45)
[2022-06-18] MEDS: Metoprolol Tartrate 25 MG TAB PO SCH ×2 (08:56→20:45)
[2022-06-18] MEDS: Enoxaparin Sodium 40 MG/0.4 ML SYRINGE SC SCH (08:56)
[2022-06-18] MEDS: DULoxetine 60 MG CAP PO SCH (08:56)
[2022-06-18] MEDS: Furosemide 40 MG TAB PO SCH (08:56)
[2022-06-18] MEDS: Azithromycin 250 MG TAB PO SCH (08:56)
[2022-06-18] MEDS ORDERED: Potassium Chloride 20 MEQ TAB PO SCH (09:00)
[2022-06-18] MEDS: cefTRIAXone\\ROCEPHIN 2 GM in Sodium Chloride 0.9% 100 ML IVPB SCH (17:33)
[2022-06-18] MEDS: clonazePAM 1 MG TAB PO PRN (20:45)
[2022-06-19 05:20] LABS: #Basophils 0.1 thou/uL (0.0-0.2); #Eosinphils 0.4 thou/uL (0.0-0.7); #Lymphocytes 3.1 thou/uL (1.20-3.40); #Monocytes 0.8 thou/uL (0.11-0.59); %Lymphocytes 42.7 % (21.0-51.0); %Monocytes 10.7 % (0.0-10.0); %Neutrophils 40.6 % (42.0-75.0); Hemoglobin 14.4 g/dL (12.0-16.0); Mean Corpuscular HGB CONC 33.1 g/dL (32.0-36.0); Mean Corpuscular Hemoglobin 31.6 pg (27.0-31.0); Mean Corpuscular Volume 95.4 fl (78.0-98.0); Platelet Count 278 10x3/uL (130-400); RBC Distribution Width 13.1 % (11.5-14.5); Red Blood Cell (RBC) Count 4.54 mill/uL (4.20-5.40); White Blood Cell (WBC) Count 7.3 10x3/uL (4.8-10.8)
[2022-06-19 05:50] LABS: Anion Gap 16 mmol/L (10-20); BUN (Urea Nitrogen) 18 mg/dL (9.8-20.1); Calc. Creatinine Clearance 113 mL/min (70-130); Calcium 9.8 mg/dL (7.8-10.44); Carbon Dioxide 24 mmol/L (23-31); Chloride 103 mmol/L (98-107); Estimated GFR 94; Glucose 91 mg/dL (80-115); Potassium 3.2 mmol/L (3.5-5.1); Sodium 140 mmol/L (136-145)
[2022-06-19] MEDS: Aspirin 81 mg Enteric Coated Tablet PO SCH (08:02)
[2022-06-19] MEDS: DULoxetine 60 MG CAP PO SCH (08:03)
[2022-06-19] MEDS: Furosemide 40 MG TAB PO SCH (08:03)
[2022-06-19] MEDS: Losartan 25 MG TAB PO SCH (08:03)
[2022-06-19] MEDS: Potassium Chloride 20 MEQ TAB PO SCH (08:03)
[2022-06-19] MEDS: Famotidine 20 MG TAB PO SCH ×2 (08:03→20:29)
[2022-06-19] MEDS: Azithromycin 250 MG TAB PO SCH (08:03)
[2022-06-19] MEDS: Metoprolol Tartrate 25 MG TAB PO SCH ×2 (08:03→20:29)
[2022-06-19] MEDS: Enoxaparin Sodium 40 MG/0.4 ML SYRINGE SC SCH (08:04)
[2022-06-19] MEDS ORDERED: Potassium Chloride 20 MEQ TAB PO SCH (10:30)
[2022-06-19 16:08] LABS: Potassium 3.6 mmol/L (3.5-5.1)
[2022-06-19] MEDS: cefTRIAXone\\ROCEPHIN 2 GM in Sodium Chloride 0.9% 100 ML IVPB SCH (18:16)
[2022-06-20] MEDS: DULoxetine 60 MG CAP PO SCH (08:58)
[2022-06-20] MEDS: Azithromycin 250 MG TAB PO SCH (08:58)
[2022-06-20] MEDS: Furosemide 40 MG TAB PO SCH (08:58)
[2022-06-20] MEDS: Enoxaparin Sodium 40 MG/0.4 ML SYRINGE SC SCH (08:58)
[2022-06-20] MEDS: Aspirin 81 mg Enteric Coated Tablet PO SCH (08:58)
[2022-06-20] MEDS: Potassium Chloride 20 MEQ TAB PO SCH (08:58)
[2022-06-20] MEDS: Metoprolol Tartrate 25 MG TAB PO SCH ×2 (08:59→21:21)
[2022-06-20] MEDS: Losartan 25 MG TAB PO SCH (08:59)
[2022-06-20] MEDS: Famotidine 20 MG TAB PO SCH ×2 (08:59→21:21)
[2022-06-20 13:29] LABS: Potassium 3.7 mmol/L (3.5-5.1)
[2022-06-20] MEDS: cefTRIAXone\\ROCEPHIN 2 GM in Sodium Chloride 0.9% 100 ML IVPB SCH (18:20)
[2022-06-20] MEDS ORDERED: Loratadine 10 MG TAB PO SCH (21:00)
[2022-06-20] MEDS: clonazePAM 1 MG TAB PO PRN (21:21)
[2022-06-21 04:03] VITALS: TEMP 97.8
[2022-06-21 04:58] LABS: #Basophils 0.1 thou/uL (0.0-0.2); #Eosinphils 0.4 thou/uL (0.0-0.7); #Lymphocytes 3.3 thou/uL (1.20-3.40); #Monocytes 0.6 thou/uL (0.11-0.59); #Neutrophils 2.4 thou/uL (1.40-6.50); %Basophils 1.4 % (0.0-1.0); %Eosinophils 5.6 % (0.0-10.0); %Lymphocytes 49.1 % (21.0-51.0); %Monocytes 8.7 % (0.0-10.0); %Neutrophils 35.2 % (42.0-75.0); Hemoglobin 14.5 g/dL (12.0-16.0); Mean Corpuscular HGB CONC 32.7 g/dL (32.0-36.0); Mean Corpuscular Hemoglobin 31.5 pg (27.0-31.0); Mean Corpuscular Volume 96.4 fl (78.0-98.0); Mean Platelet Volume 7.8 fL (7.4-10.4); Platelet Count 286 10x3/uL (130-400); RBC Distribution Width 12.7 % (11.5-14.5); Red Blood Cell (RBC) Count 4.62 mill/uL (4.20-5.40); White Blood Cell (WBC) Count 6.7 10x3/uL (4.8-10.8)
[2022-06-21 05:20] LABS: Anion Gap 16 mmol/L (10-20); BUN (Urea Nitrogen) 15 mg/dL (9.8-20.1); Calc. Creatinine Clearance 121 mL/min (70-130); Calcium 9.9 mg/dL (7.8-10.44); Carbon Dioxide 24 mmol/L (23-31); Chloride 103 mmol/L (98-107); Estimated GFR 99; Glucose 86 mg/dL (80-115); Potassium 3.6 mmol/L (3.5-5.1); Sodium 139 mmol/L (136-145)
[2022-06-21 08:29] VITALS: BP 168/72
[2022-06-21] MEDS: Potassium Chloride 20 MEQ TAB PO SCH (09:00)
[2022-06-21] MEDS: Enoxaparin Sodium 40 MG/0.4 ML SYRINGE SC SCH (09:00)
[2022-06-21] MEDS: Metoprolol Tartrate 25 MG TAB PO SCH (09:00)
[2022-06-21] MEDS: Famotidine 20 MG TAB PO SCH (09:00)
[2022-06-21] MEDS: DULoxetine 60 MG CAP PO SCH (09:00)
[2022-06-21] MEDS: Aspirin 81 mg Enteric Coated Tablet PO SCH (09:00)
[2022-06-21] MEDS: Furosemide 40 MG TAB PO SCH (09:00)
[2022-06-21] MEDS: Losartan 25 MG TAB PO SCH (09:01)
== END 2022-06-21 12:19 | disposition home or self-care (01) | DRG 291 ==
LOC: ERS 10:31 → IMCU/EMU 13:58 → 2SW 06-18 20:17
PROVIDERS: ADMIT Hospitalist; ATTEND Internal Medicine
DX: I11.0 Hypertensive heart disease with heart failure (principal); I50.33 Acute on chronic diastolic (congestive) heart failure; J96.01 Acute respiratory failure with hypoxia; I25.10 Atherosclerotic heart disease of native coronary artery without angina pectoris; Z96.651 Presence of right artificial knee joint; Z20.822 Contact with and (suspected) exposure to COVID-19; E66.9 Obesity, unspecified; F41.9 Anxiety disorder, unspecified; E83.42 Hypomagnesemia; E87.6 Hypokalemia; Z90.49 Acquired absence of other specified parts of digestive tract; Z90.09 Acquired absence of other part of head and neck; Z68.31 Body mass index [BMI] 31.0-31.9, adult; Z79.899 Other long term (current) drug therapy
CPT/HCPCS: 36415; 71045; 71046; 71275; 80048; 80053; 81003; 82550; 83605; 83690; 83735; 83880; 84132; 84145; 84443; 84484; 85025; 86140; 87040; 87449; 87899; 93005; 93306; 93798; 94660; 96361; 96365; 96375; 97139; J0692; J0696; J1650; J1940; J3370-JW; J3475; J3490; Q9967